=== PATIENT | male | born 1930 | race Caucasian/White ===

== ENCOUNTER 2018-04-10 10:53 | Outpatient (CLI) | payer MEDICARE, BC ==
--- NOTE | 2018-04-10 13:10 | RAD ---
TWO VIEWS CHEST: Comparison: 01-22-16 History: Cough for one month. FINDINGS: Two views of the chest shows a normal sized cardiomediastinal silhouette. The patient is status post sternotomy. There is no evidence of consolidation, mass or pleural effusions. Degenerative changes ar e seen in the spine. IMPRESSION: No evidence of acute cardiopulmonary disease. POS: [facility]
== END 2018-04-10 10:54 | disposition home or self-care (01) ==
LOC: BICRAD 10:53
PROVIDERS: ATTEND Otolaryngology Plastic Surgery within the Head & Neck
DX: R05 Cough (principal)
CPT/HCPCS: 71046

== ENCOUNTER 2019-08-23 07:34 | Day surgery (SDC) | payer MEDICARE, BC ==
[2019-08-22 10:49] VITALS: BMI 26.6
[~2019-08-23 07:34] MED LIST: Fentanyl 100 MCG/2 ML VIAL ONE; Fluorouracil 100 MG, Enoxaparin Sodium 25 MG, EPINEPHrine 0.3 MG in Ophthalmic Irrigati... IRR SCH
[2019-08-23] MEDS ORDERED: Phenylephrine 2.5% Ophth Soln 5 ML BOT ONE (07:48)
[2019-08-23] MEDS ORDERED: Cyclopentolate 1% Opth Drop 2 ML BOT ONE (07:48)
[2019-08-23] MEDS ORDERED: Bupivacaine PF 0.75% SDV 10 ML ONE (08:59)
[2019-08-23] MEDS ORDERED: CEFAZOLIN 1 GM VIAL ONE (08:59)
[2019-08-23] MEDS ORDERED: Enoxaparin Sodium 30 MG/0.3 ML SYRINGE ONE (08:59)
[2019-08-23] MEDS ORDERED: Indocyanine Green 25 MG/10 ML VIAL ONE (08:59)
[2019-08-23] MEDS ORDERED: Triamcinolone 40 MG/ML VIAL ONE (08:59)
[2019-08-23] MEDS ORDERED: Lidocaine 4% PF 5 ML AMP ONE (08:59)
[2019-08-23] MEDS ORDERED: Lidocaine 1% PF 5 ML VIAL ONE (08:59)
[2019-08-23] MEDS ORDERED: PROPOFOL 200 MG/20 ML VIAL ONE (08:59)
[2019-08-23] MEDS ORDERED: Tobramycin/Dexamethasone Ophth Oint 3.5 GM TUBE ONE (09:00)
[2019-08-23] MEDS ORDERED: PROPOFOL 20 ML ONE (09:58)
--- NOTE | 2019-08-24 10:29 | OP ---
DATE OF PROCEDURE: 08/23/2019 PREOPERATIVE DIAGNOSIS: Epiretinal membrane, right eye. POSTOPERATIVE DIAGNOSIS: Epiretinal membrane, right eye. PROCEDURE PERFORMED: Pars plana vitrectomy, epiretinal membrane peel, right eye. ANESTHESIA: Local with monitored anesthesia care. DESCRIPTION OF PROCEDURE: The patient was identified in the preoperative holding area. Appropriate informed consent for the planned surgical procedure on the right eye had been obtained. The patient was transported to the operative suite, where appropriate cardiopulmonary monitoring was established. Local anesthesia was obtained using retrobulbar and modified Van Lint and lid block using 50:50 mixture of 4% lidocaine and 0.75% bupivacaine. The patient was prepped and draped in usual sterile manner for ophthalmic surgery in the right eye. Lid speculum was placed in the right eye. A 27-gauge trocar was placed in the conjunctiva and sclera supratemporally . Light pipe and vitreous cutter were inserted into the eye. Core vitrectomy was performed. Indocyanine green dye was infused on the posterior pole x1 identifying the epiretinal membrane. This was elevated on the edges using a membrane scraper and peeled across the macula using end gripping forceps. Indirect ophthalmoscopy was used to exam the retina 360 degrees. No holes, breaks, or tears were identified. Trocars were removed. Eye was noted to retain pressure well. Retrobulbar Kenalog and sequential Ancef were placed antibiotic ointment was placed. The eye was patched and shielded. The patient was taken to postoperative recovery unit in good condition, having suffered no immediate perioperative complications. The patient was instructed to keep patch and shield on, avoid lifting or bending. Follow appointment with Dr. Veronica. Job ID: [id number]
== END 2019-08-23 10:45 | disposition home or self-care (01) ==
LOC: SDC 07:34
PROVIDERS: ATTEND Ophthalmology Retina Specialist
PROC: 08T43ZZ Resection of Right Vitreous, Percutaneous Approach (ICD-10-PCS; principal; 2019-08-23)
PROC: 08NE3ZZ Release Right Retina, Percutaneous Approach (ICD-10-PCS; 2019-08-23)
DX: H35.371 Puckering of macula, right eye (principal); Z79.82 Long term (current) use of aspirin; Z79.899 Other long term (current) drug therapy; Z88.1 Allergy status to other antibiotic agents; Z91.040 Latex allergy status; Z95.1 Presence of aortocoronary bypass graft
CPT/HCPCS: J0171; J0690; J1650; J2001; J2704; J3010; J3301; J3490; J9190

== ENCOUNTER 2019-08-27 09:25 | Inpatient (IN) | payer MEDICARE, BC ==
--- NOTE | 2019-08-27 10:26 | CT ---
CT head noncontrast HISTORY: Fall. Injury. FINDINGS: There is no evidence of acute intracranial hemorrhage or infarct. Mild diffuse cortical atr ophy. There is no mass effect or shift of midline structures. No skull fracture evident. IMPRESSION: No traumatic injury is demonstrated.
[2019-08-27] MEDS ORDERED: Acetaminophen 500 MG TAB ONE (10:38)
[2019-08-27 10:39] LABS: ALT (SGPT) 12 U/L (8-55); AST (SGOT) 17 U/L (5-34); Albumin 4.1 g/dL (3.4-4.8); Alkaline Phosphatase 71 U/L (40-110); Anion Gap 15 mmol/L (10-20); BUN (Urea Nitrogen) 23 mg/dL (8.4-25.7); Bilirubin, Total 0.9 mg/dL (0.2-1.2); Calc. Creatinine Clearance 0 mL/min (70-130); Calcium 8.9 mg/dL (7.8-10.44); Carbon Dioxide 18 mmol/L (23-31); Chloride 108 mmol/L (98-107); Estimated GFR-MDRD 55; Globulin 2.8 g/dL (2.4-3.5); Glucose 129 mg/dL (83-110); Potassium 4.1 mmol/L (3.5-5.1); Protein, Total 6.9 g/dL (5.8-8.1); Sodium 137 mmol/L (136-145)
--- NOTE | 2019-08-27 10:40 | CT ---
CT CERVICAL SPINE WITHOUT CONTRAST: Date: 08/27/2019 INDICATION: History of nausea, vomiting, fever, and neck pain. COMPARISON: None. FINDINGS: There is moderate multilevel disc degenerative disease with prominent anterior bridging osteophytes s panning C4 through C7. No acute fracture is evident. Craniocervical junction is normal appearing. Oss eous central canal appears relatively well preserved. Prevertebral soft tissues are normal appearing. Lung apices are clear. IMPRESSION: 1. No acute fracture or subluxation. 2. Moderate to severe multilevel cervical spondylosis. POS: [facility]
[2019-08-27 10:47] LABS: Band 20 % (5-11); Hemoglobin 15.9 g/dL (14.0-18.0); Lymphocytes 15 % (21-51); MDiff Complete? YES; Mean Corpuscular HGB CONC 33.4 g/dL (32.0-36.0); Mean Corpuscular Hemoglobin 30.3 pg (27.0-31.0); Mean Corpuscular Volume 90.6 fL (78.0-98.0); Mean Platelet Volume 8.9 fL (7.4-10.4); Monocytes 23 % (0-10); Neutrophil 41 % (42-75); Platelet Count 119 thou/uL (130-400); Platelet Morphology Comment Appears Decreased; RBC Distribution Width 12.9 % (11.5-14.5); RBC Morphology Normal; Reactive Lymphocytes 1 % (0-10); Red Blood Cell (RBC) Count 5.26 mill/uL (4.70-6.10); White Blood Cell (WBC) Count 3.8 thou/uL (4.8-10.8)
[2019-08-27] MEDS ORDERED: Iopamidol 370 76% 100 ML VIAL ONE (13:38)
--- NOTE | 2019-08-27 13:49 | RAD ---
XR Chest 1 View Portable HISTORY: Syncope COMPARISON: 05/03/2016 FINDINGS: The heart size is normal. The lungs are well expanded without focal areas of consolidation, pneumothorax or pleural effusions changes of median sternotomy are again seen.. IMPRESSION: No radiographic evidence of acute cardiopulmonary process.
--- NOTE | 2019-08-27 14:29 | CT ---
CT ABDOMEN AND PELVIS WITH IV CONTRAST: HISTORY: Diarrhea for 2 days. COMPARISON: None. FINDINGS: There is mild linear scarring versus atelectasis present at each lung base. Median sternotomy wires are partially imaged. The liver, spleen, pancreas, bilateral adrenal glands, kidneys, and partially distended urinary bladd er demonstrate a normal CT appearance. Loops of small bowel are normal in caliber. There are fluid-filled loops of small bowel. Colonic di verticulosis is present. Fluid is present within the sigmoid colon and rectum. There is suggested w all thickening involving the ascending colon with minimal pericolonic inflammatory changes identified . Findings could be related to colitis in this region, but given wall thickening, followup evaluatio n is recommended to ensure resolution. Vascular calcifications are seen in the abdominal aorta and involving the iliac arteries. No free fluid, fluid collection, or lymphadenopathy is seen in the abdomen or pelvis. Right total hip prosthesis is noted. Multilevel degenerative changes are seen in the lower thoracic as well as involving the lumbar spine, greatest involving the lower lumbar spine. Mild left hip oste oarthritis is present. Small fat-containing bilateral inguinal canals are present. IMPRESSION: 1. The ascending colon is incompletely distended which limits evaluation. There is suggested wall t hickening involving the colon in this region which could be related to incomplete distention, but the re are minimal adjacent pericolonic inflammatory changes also noted in this region, and findings are worrisome for colitis which may be either infectious or inflammatory in etiology. However, followup evaluation is recommended to ensure resolution of the suggested wall thickening involving the ascendi ng colon. 2. Small hiatal hernia. POS: [facility]
[2019-08-27] MEDS ORDERED: Senokot S 8.6-50 MG TAB PO PRN (15:51)
[2019-08-27] MEDS ORDERED: Calcium Carbonate 500 MG ChewTAB PO PRN (15:51)
[2019-08-27] MEDS ORDERED: Bisacodyl 10 MG SUPP PR PRN (15:51)
[2019-08-27] MEDS ORDERED: Ondansetron PF 4 MG/2 ML Vial IVP PRN (15:51)
[2019-08-27] MEDS ORDERED: Ondansetron ODT 4 MG TAB PO PRN (15:51)
[2019-08-27] MEDS ORDERED: Acetaminophen 325 MG TAB ONE (16:54)
[2019-08-27] MEDS: Acetaminophen 325 MG TAB PO PRN (17:03)
[2019-08-27] MEDS: Sodium Chloride 0.9% 1,000 ML IV SCH (17:03)
--- NOTE | 2019-08-27 18:27 | HP ---
PRIMARY CARE PHYSICIAN: Dr. Karan Paez. REASON FOR ADMISSION: Syncope, colitis. HISTORY OF PRESENT ILLNESS: An 89-year-old male, who has underlying history of dyslipidemia, anxiety, and depression, who lives at home with his family. Last night, the patient was having acute onset of diarrhea. The patient went to bathroom and he fell down. He had unwitnessed fall, but the patient did not have any injury. He was not complaining any pain anywhere in his body. The patient reports that he had loose stool and he became weak, and subsequently, he was not able to get out of bed and that is why family member brought him to emergency room for evaluation. In the emergency room, the patient had CT brain, which showed no acute intracranial process without any injury. Cervical spine showed [id number] cervical spondylosis without any fracture or dislocation. The patient had routine blood test done, which showed bandemia and that is why we did CT abdomen and pelvis, which showed suspected finding of ascending colon colitis and small hiatal hernia. The patient was also having diarrhea in the emergency room and bandemia and that is why stool for infection workup was initiated that was unremarkable including C diff was negative. The patient was overall very weak and that is why we decided to keep this patient in hospital for overnight observation. In the emergency room, the patient developed a fever with temperature maximum was 102.4. That is why we decided to do panculture in the emergency room. The patient was extremely weak and he was not able to move at all because of weakness and requiring lot of assistance and that is why we decided to change to inpatient status after observation status because he was meeting sepsis criteria and most likely source of infection is colon. Review of systems, all review of systems reviewed with him and negative except as mentioned in HPI. PAST MEDICAL HISTORY: Coronary artery disease with history of CABG, history of prostatitis, history of recurrent diverticulitis, dyslipidemia, peripheral neuropathy. PAST PSYCHIATRIC HISTORY: Anxiety and depression. ALLERGIES: EFFEXOR, WELLBUTRIN, PAXIL, PROZAC, ZYPREXA, NSAIDS. SOCIAL HISTORY: The patient is . No history of tobacco, alcohol, or illicit drug abuse. CURRENT HOME MEDICATIONS: 1. Xanax 0.5 mg p.o. at bedtime. 2. Aspirin 81 mg p.o. daily. 3. Crestor 5 mg p.o. at bedtime. 4. Zoloft 50 mg p.o. daily at bedtime. REVIEW OF SYSTEMS: CONSTITUTIONAL: Negative for weight loss or gain, ability to conduct usual activities. SKIN: Negative for rash, itching. EYES: Negative for double vision, pain. ENT/MOUTH: Negative for nose bleeding, neck stiffness, pain, tenderness. CARDIOVASCULAR: Negative for palpitations, dyspnea on exertion, orthopnea. RESPIRATORY: Negative for shortness of breath, wheezing, cough, hemoptysis, fever or night sweats. GASTROINTESTINAL: Negative for poor appetite, abdominal pain, heartburn, nausea, vomiting, constipation, or diarrhea. GENITOURINARY: Negative for urgency, frequency, dysuria, nocturia. MUSCULOSKELETAL: Negative for pain, swelling. NEUROLOGIC/PSYCHIATRIC: Negative for anxiety, depression. ALLERGY/IMMUNOLOGIC: Negative for skin rash, bleeding tendency. Please see my HPI for pertinent positives and negatives. All other review of systems reviewed and negative except as mentioned in HPI. EMERGENCY ROOM COURSE: The patient received Tylenol 1 g and IV fluid. PHYSICAL EXAMINATION: VITAL SIGNS: On arrival, blood pressure 131/77, pulse 89, respiratory rate 20, temperature 102.4, saturation 98% on room air. Weight 86.2 kg. GENERAL: The patient is currently very weak. No obvious acute distress. HEENT: Head; normocephalic and atraumatic. Eyes; pupils round and reactive to light. Extraocular muscle intact. The patient's right eye is red and injected secondary to recent surgery. Other eye is unaffected. NECK: Supple. No JVD. No meningeal signs of irritation. LUNGS: Clear to auscultation without any rhonchi or rales. CARDIAC: S1 and S2 regular. No murmur. No gallop. No rub. ABDOMEN: Soft. Bowel sounds are present. Nontender. Nondistended. No organomegaly. No mass. No peritoneal sign. BACK: Unremarkable. No CVA tenderness. EXTREMITIES: Upper extremities; passive movement of all joints is normal. Lower extremities; no edema. Good distal pulsation. SKIN: No skin rash. HEMATOLOGIC: No lymphadenopathy. NEUROLOGIC: Grossly nonfocal examination. He moves all 4 limbs, but the patient is very weak. He does not have any focal neurological deficit. IMAGING STUDIES: EKG showing nonspecific ST-T changes in anterior leads. Chest x-ray based on my review no acute cardiopulmonary process. CT abdomen and pelvis showing a suspected finding of ascending colon colitis as well as small hiatal hernia. Cervical spine CT scan showing diffuse cervical spondylosis with arthritis. CT brain negative for any acute intracranial process. LABORATORY DATA: CBC; WBC 3.8, hemoglobin 15.9, platelet 119 with bandemia. BMP; sodium 137, potassium 4.1, chloride 108, carbon dioxide 18, BUN 23, creatinine 1.24, glucose 129, and calcium 8.9. LFT; AST 17, ALT 12, alkaline phosphatase 71, albumin 4.1. Troponin 0.011. Glucose 121. ASSESSMENT AND PLAN: Impression: 1. Sepsis, most likely source is colitis, but underlying diverticulitis versus prostatitis cannot be entirely excluded, possible urinary tract infection. 2. Leukopenia, bandemia, and thrombocytopenia likely due to sepsis. 3. Mild metabolic acidosis. We will check lactic acid secondary to sepsis. 4. Colitis/diverticulitis based on CT finding. The patient will be kept on Cipro and Flagyl. 5. Volume depletion secondary to nausea, vomiting, diarrhea. The patient will be given IV fluid with NS at 75 mL/h. 6. Syncope, likely due to volume depletion secondary to diarrhea. The patient will be given IV fluid. We will check orthostatic vitals and we will also obtain echocardiography to rule out any cardiac etiology and monitor on telemetry floor. 7. Gastroenteritis/colitis. Infection workup is negative. We will continue with Cipro and Flagyl empirically. We will send urine culture and urinalysis to rule out associated prostatitis or urinary tract infection. 8. Physical deconditioning and generalized weakness. The patient will need PT/OT evaluation and [facility] consultation for possible need of placement. 9. Dyslipidemia. We will continue his home medication, Crestor 5 mg p.o. daily. 10. Anxiety and depression. We will continue Xanax 0.5 mg p.o. at bedtime, Zoloft 50 mg p.o. at bedtime. CODE STATUS: The patient is full code. The patient's is surrogate decision maker. DISPOSITION PLAN: Based on clinical course, we are expecting the patient's stay in hospital more than 2 midnights. Plan of care discussed with the patient and family member at bedside. Job ID: [id number]
[2019-08-27] MEDS: Famotidine 20 MG TAB PO SCH (21:39)
[2019-08-27] MEDS: ALPRAZolam 0.5 MG TAB PO SCH (21:39)
[2019-08-27] MEDS: Rosuvastatin 5 MG TAB PO SCH (21:39)
[2019-08-27] MEDS: Loperamide HCl 2 MG CAP PO PRN (21:39)
[2019-08-27] MEDS: metroNIDAZOLE 500 MG in Premix Bag 1 BAG IVPB SCH (21:40)
[2019-08-27 22:23] VITALS: BMI 31.1
[2019-08-28] MEDS: Acetaminophen 325 MG TAB PO PRN (00:21)
[2019-08-28] MEDS: metroNIDAZOLE 500 MG in Premix Bag 1 BAG IVPB SCH (05:28)
[2019-08-28] MEDS: Sodium Chloride 0.9% 1,000 ML IV SCH ×3 (05:30→18:37)
[2019-08-28 05:38] LABS: ALT (SGPT) 12 U/L (8-55); AST (SGOT) 31 U/L (5-34); Albumin 3.9 g/dL (3.4-4.8); Alkaline Phosphatase 57 U/L (40-110); Anion Gap 11 mmol/L (10-20); BUN (Urea Nitrogen) 22 mg/dL (8.4-25.7); Bilirubin, Total 0.8 mg/dL (0.2-1.2); Calc. Creatinine Clearance 48 mL/min (70-130); Calcium 8.5 mg/dL (7.8-10.44); Carbon Dioxide 21 mmol/L (23-31); Chloride 104 mmol/L (98-107); Estimated GFR-MDRD 52; Globulin 2.6 g/dL (2.4-3.5); Glucose 123 mg/dL (83-110); Protein, Total 6.5 g/dL (5.8-8.1); Sodium 133 mmol/L (136-145)
[2019-08-28 06:02] LABS: Hemoglobin 14.8 g/dL (14.0-18.0); Mean Corpuscular HGB CONC 33.3 g/dL (32.0-36.0); Mean Corpuscular Hemoglobin 29.6 pg (27.0-31.0); Mean Corpuscular Volume 88.9 fL (78.0-98.0); RBC Distribution Width 12.8 % (11.5-14.5); Red Blood Cell (RBC) Count 4.99 mill/uL (4.70-6.10)
[2019-08-28 06:21] LABS: Band 30 % (5-11); Lymphocytes 24 % (21-51); MDiff Complete? YES; Mean Platelet Volume 8.7 fL (7.4-10.4); Metamyelocyte 3 % (0-0); Monocytes 18 % (0-10); Neutrophil 25 % (42-75); Platelet Count 108 thou/uL (130-400); Platelet Morphology Comment Appears Decreased; White Blood Cell (WBC) Count 2.2 thou/uL (4.8-10.8)
[2019-08-28 06:24] LABS: Bacteria/HPF None Seen HPF (None Seen); Bilirubin Negative (Negative); Blood, Urine 1+ (Negative); Clarity Clear (Clear); Glucose, Urine (Dipstick) Normal (Negative); Leukocyte Negative Leu/uL (Negative); Nitrite Negative (Negative); Protein, Urine (Dipstick) 50 mg/dL (Neg-Trace); RBC/HPF 0-3 HPF (0-3); Squamous Epithelial 0-3 HPF (0-3); Urobilinogen Normal mg/dL (Less than 2)
[2019-08-28] MEDS: Aspirin 81 mg Enteric Coated Tablet PO SCH (08:25)
[2019-08-28] MEDS: Saccharomyces boulardii 250 MG CAP PO SCH (08:25)
[2019-08-28] MEDS: Famotidine 20 MG TAB PO SCH ×2 (08:25→20:24)
[2019-08-28] MEDS: Potassium Chloride 40 MEQ in Sodium Chloride 0.9% 250 ML 250 ML IVPB SCH ×2 (09:56→15:28)
[2019-08-28] MEDS ORDERED: metroNIDAZOLE 500 MG in Premix Bag 1 BAG IVPB SCH (10:00)
[2019-08-28] MEDS: Loperamide HCl 2 MG CAP PO PRN ×3 (12:33→20:23)
--- NOTE | 2019-08-28 20:03 | PDOC.HOSPP ---
- Subjective Encounter Date: 08/28/19 Encounter Time: 09:00 Subjective: overnight, continued to have loose bowel movements, nausea and vomiting. Otherwise no complaints. - Objective Vital Signs & Weight: Vital Signs (12 hours) Temp Pulse Pulse Pulse Resp BP BP 08/28/19 15:57 98.6 F 70 18 08/28/19 12:30 98.5 F 81 16 08/28/19 10:14 78 82 131/68 141/70 H 08/28/19 09:34 81 80 139/74 126/72 BP BP Pulse Ox 08/28/19 15:57 143/65 H 96 08/28/19 12:30 109/68 96 08/28/19 10:14 08/28/19 09:34 Weight Weight 187 lb I&O: 08/27/19 08/28/19 08/29/19 06:59 06:59 06:59 Intake Total 943 2020 Output Total 803 4 Balance 140 2015 Result Diagrams: 08/28/19 04:38 08/28/19 04:38 Hospitalist ROS - Review of Systems Constitutional: denies: fever, chills, sweats, weakness, malaise, other Respiratory: denies: cough, dry, shortness of breath, hemoptysis, SOB with excertion, pleuritic pain, sputum, wheezing, other Cardiovascular: denies: chest pain, palpitations, orthopnea, paroxysmal noc. dyspnea, edema, light headedness, other Gastrointestinal: reports: nausea, vomiting, diarrhea. denies: abdominal pain, constipation, melena, hematochezia Genitourinary: denies: dysuria, frequency, incontinence, hematuria, retention, other - Medication Medications: Active Medications Generic Name Dose Route Start Last Admin Trade Name Freq PRN Reason Stop Dose Admin Acetaminophen 650 mg 08/27/19 15:51 08/28/19 00:21 Tylenol PO 650 mg Q4H PRN Administration Headache/Fever/Mild Pain (1-3) Alprazolam 0.5 mg 08/27/19 21:00 08/27/19 21:39 Xanax PO 0.5 mg HS BILLIE Administration Aspirin 81 mg 08/28/19 09:00 08/28/19 08:25 Ecotrin PO 81 mg DAILY BILLIE Administration Famotidine 20 mg 08/27/19 21:00 08/28/19 08:25 Pepcid PO 20 mg BID BILLIE Administration Sodium Chloride 1,000 mls @ 120 mls/hr 08/28/19 09:30 08/28/19 18:37 Normal Saline 0.9% IV 1,000 mls .Q8H20M BILLIE Administration Loperamide HCl 2 mg 08/27/19 15:51 08/28/19 18:48 Imodium PO 2 mg PRN PRN Administration Diarrhea/Loose Stools Ondansetron HCl 4 mg 08/27/19 15:51 08/27/19 23:01 Zofran IVP 4 mg Q6H PRN Administration Nausea/Vomiting Rosuvastatin Calcium 5 mg 08/27/19 21:00 08/27/19 21:39 Crestor PO 5 mg HS BILLIE Administration Saccharomyces Boulardii 250 mg 08/28/19 09:00 08/28/19 08:25 Florastor PO 250 mg DAILY BILLIE Administration Sertraline HCl 50 mg 08/27/19 21:00 08/27/19 21:40 Zoloft PO 50 mg HS BILLIE Administration - Exam General Appearance: NAD, awake alert Heart: RRR, no murmur, no gallops, no rubs Respiratory: CTAB, no wheezes, no rales, no ronchi Gastrointestinal: soft, non-tender, non-distended, normal bowel sounds Extremities: no edema Psychiatric: normal affect, normal behavior, A&O x 3 Hosp A/P - Plan #viral gastroenteritis -qSOFA 0/3 -acute, n/v with diarrhea -bacterial and fungal stool studies negative -stopped antibiotics -will expect resolution within a day or two; otherwise will do additional studies including stool osmolality -supportive management #pancytopenia -unclear etiology, possible marrow suppression due to viral infection -will continue to follow, if persists will work up
[2019-08-28] MEDS: ALPRAZolam 0.5 MG TAB PO SCH (20:23)
[2019-08-28] MEDS: Rosuvastatin 5 MG TAB PO SCH (20:23)
[2019-08-29] MEDS: Sodium Chloride 0.9% 1,000 ML IV SCH (03:10)
[2019-08-29 04:48] LABS: Anion Gap 10 mmol/L (10-20); BUN (Urea Nitrogen) 17 mg/dL (8.4-25.7); Calc. Creatinine Clearance 57 mL/min (70-130); Carbon Dioxide 16 mmol/L (23-31); Chloride 110 mmol/L (98-107); Estimated GFR-MDRD 63; Glucose 100 mg/dL (83-110); Magnesium 1.7 mg/dL (1.6-2.6); Potassium 3.2 mmol/L (3.5-5.1); Sodium 133 mmol/L (136-145)
[2019-08-29 04:59] LABS: Band 14 % (5-11); Eosinophils 1 % (0-10); Hemoglobin 13.1 g/dL (14.0-18.0); Lymphocytes 38 % (21-51); MDiff Complete? YES; Mean Corpuscular HGB CONC 34.4 g/dL (32.0-36.0); Mean Corpuscular Hemoglobin 30.5 pg (27.0-31.0); Mean Corpuscular Volume 88.8 fL (78.0-98.0); Monocytes 27 % (0-10); Neutrophil 18 % (42-75); Platelet Count 79 thou/uL (130-400); Platelet Morphology Comment Appears Decreased; RBC Distribution Width 12.5 % (11.5-14.5); Reactive Lymphocytes 2 % (0-10); Red Blood Cell (RBC) Count 4.31 mill/uL (4.70-6.10); White Blood Cell (WBC) Count 2.1 thou/uL (4.8-10.8)
[2019-08-29] MEDS ORDERED: Ciprofloxacin 500 MG TAB PO SCH (07:00)
[2019-08-29] MEDS ORDERED: Magnesium 2 GM/50 ML 2 GM in Premix Bag 1 BAG IVPB SCH (07:45)
[2019-08-29] MEDS: NS 0.9% w/ 40 MEQ KCL 1,000 ML IV SCH ×2 (08:51→19:56)
[2019-08-29] MEDS: Saccharomyces boulardii 250 MG CAP PO SCH (08:52)
[2019-08-29] MEDS: Aspirin 81 mg Enteric Coated Tablet PO SCH (08:52)
[2019-08-29] MEDS: Famotidine 20 MG TAB PO SCH ×2 (09:05→21:19)
[2019-08-29] MEDS: Acetaminophen 325 MG TAB PO PRN (12:42)
[2019-08-29] MEDS: Ciprofloxacin 500 MG TAB PO SCH (20:00)
[2019-08-29] MEDS: Rosuvastatin 5 MG TAB PO SCH (21:19)
[2019-08-29] MEDS: ALPRAZolam 0.5 MG TAB PO SCH (21:19)
[2019-08-30] MEDS: NS 0.9% w/ 40 MEQ KCL 1,000 ML IV SCH ×2 (05:23→15:43)
[2019-08-30] MEDS: Ciprofloxacin 500 MG TAB PO SCH ×2 (05:24→20:23)
[2019-08-30] MEDS: Saccharomyces boulardii 250 MG CAP PO SCH (08:27)
[2019-08-30] MEDS: Famotidine 20 MG TAB PO SCH ×2 (08:27→20:23)
[2019-08-30] MEDS: Aspirin 81 mg Enteric Coated Tablet PO SCH (08:27)
[2019-08-30 10:17] LABS: Anion Gap 10 mmol/L (10-20); BUN (Urea Nitrogen) 14 mg/dL (8.4-25.7); Calc. Creatinine Clearance 61 mL/min (70-130); Calcium 7.9 mg/dL (7.8-10.44); Carbon Dioxide 21 mmol/L (23-31); Chloride 111 mmol/L (98-107); Estimated GFR-MDRD 68; Glucose 128 mg/dL (83-110); Magnesium 1.8 mg/dL (1.6-2.6); Potassium 3.7 mmol/L (3.5-5.1); Sodium 138 mmol/L (136-145)
[2019-08-30] MEDS: Rosuvastatin 5 MG TAB PO SCH (20:23)
[2019-08-30] MEDS: ALPRAZolam 0.5 MG TAB PO SCH (20:23)
--- NOTE | 2019-08-30 20:41 | PDOC.HOSPP ---
- Subjective Encounter Date: 08/29/19 Encounter Time: 11:00 Subjective: no overnight events. Conitnues to feel well. had 4 loose bowel movements overnight. - Objective Vital Signs & Weight: Vital Signs (12 hours) Temp Pulse Pulse Resp BP BP BP 08/30/19 20:00 98.4 F 64 20 162/72 H 08/30/19 16:25 61 138/63 143/78 H 08/30/19 16:00 98.6 F 60 18 08/30/19 11:43 97.4 F L 64 18 BP BP BP Pulse Ox 08/30/19 20:00 154/63 H 160/67 H 160/77 H 94 L 08/30/19 16:25 08/30/19 16:00 150/88 H 97 08/30/19 11:43 140/64 95 Weight Weight 187 lb I&O: 08/29/19 08/30/19 08/31/19 06:59 06:59 06:59 Intake Total 3700 1840 3200 Output Total 807 1125 1650 Balance 2893 715 1550 Result Diagrams: 08/29/19 04:12 08/30/19 09:39 Hospitalist ROS - Review of Systems Constitutional: denies: fever, chills, sweats, weakness, malaise, other Respiratory: denies: cough, dry, shortness of breath, hemoptysis, SOB with excertion, pleuritic pain, sputum, wheezing, other Cardiovascular: denies: chest pain, palpitations, orthopnea, paroxysmal noc. dyspnea, edema, light headedness, other Gastrointestinal: denies: nausea, vomiting, abdominal pain, diarrhea, constipation, melena, hematochezia, other Genitourinary: denies: dysuria, frequency, incontinence, hematuria, retention, other Neurological: denies: weakness, numbness, incoordination, change in speech, confusion, seizures, other - Medication Medications: Active Medications Generic Name Dose Route Start Last Admin Trade Name Freq PRN Reason Stop Dose Admin Acetaminophen 650 mg 08/27/19 15:51 08/29/19 12:42 Tylenol PO 650 mg Q4H PRN Administration Headache/Fever/Mild Pain (1-3) Alprazolam 0.5 mg 08/27/19 21:00 08/30/19 20:23 Xanax PO 0.5 mg HS BILLIE Administration Aspirin 81 mg 08/28/19 09:00 08/30/19 08:27 Ecotrin PO 81 mg DAILY BILLIE Administration Ciprofloxacin 500 mg 08/29/19 20:00 08/30/19 20:23 Cipro PO 500 mg 0600,2000 BILLIE Administration Famotidine 20 mg 08/27/19 21:00 08/30/19 20:23 Pepcid PO 20 mg BID BILLIE Administration Potassium Chloride/Sodium Chloride 1,000 mls @ 100 mls/hr 08/29/19 07:30 15:43 Ns 0.9% W/ 40 Meq Kcl IV 1,000 mls .Q10H BILLIE Administration Ondansetron HCl 4 mg 08/27/19 15:51 08/27/19 23:01 Zofran IVP 4 mg Q6H PRN Administration Nausea/Vomiting Rosuvastatin Calcium 5 mg 08/27/19 21:00 08/30/19 20:23 Crestor PO 5 mg HS BILLIE Administration Saccharomyces Boulardii 250 mg 08/28/19 09:00 08/30/19 08:27 Florastor PO 250 mg DAILY BILLIE Administration Sertraline HCl 50 mg 08/27/19 21:00 08/30/19 20:23 Zoloft PO 50 mg HS BILLIE Administration Sodium Chloride 10 ml 08/29/19 09:00 08/30/19 20:23 Flush - Normal Saline IVF 10 ml Q12HR BILLIE Administration - Exam General Appearance: negative: NAD, awake alert, ill appearing Heart: RRR, no murmur, no gallops, no rubs, normal peripheral pulses Respiratory: CTAB, no wheezes, no rales, no ronchi, normal chest expansion, no tachypnea, normal percussion Gastrointestinal: soft, non-tender, non-distended, normal bowel sounds, no palpable masses, no hepatomegaly, no splenomegaly, no bruit Extremities: no cyanosis, no clubbing, no edema Psychiatric: normal affect, normal behavior, A&O x 3 Hosp A/P - Plan #salmonella colitis -qSOFA 0/3 -acute, n/v with diarrhea -stool culture growing salmonella -will expect resolution of diarrhea within a day or two considering mild symptoms -supportive management #pancytopenia -unclear etiology, possible marrow suppression due to viral infection -will continue to follow, if persists will work up
--- NOTE | 2019-08-30 20:45 | PDOC.HOSPP ---
- Subjective Encounter Date: 08/29/19 Encounter Time: 09:00 Subjective: no overnight events. This morning, continues to feel well. has no complaints and denies chills, night sweats. Can't recall how many bowel movements. - Objective Vital Signs & Weight: Vital Signs (12 hours) Temp Pulse Pulse Resp BP BP BP 08/30/19 20:00 98.4 F 64 20 162/72 H 08/30/19 16:25 61 138/63 143/78 H 08/30/19 16:00 98.6 F 60 18 08/30/19 11:43 97.4 F L 64 18 BP BP BP Pulse Ox 08/30/19 20:00 154/63 H 160/67 H 160/77 H 94 L 08/30/19 16:25 08/30/19 16:00 150/88 H 97 08/30/19 11:43 140/64 95 Weight Weight 187 lb I&O: 08/29/19 08/30/19 08/31/19 06:59 06:59 06:59 Intake Total 3700 1840 3200 Output Total 807 1125 1650 Balance 2893 715 1550 Result Diagrams: 08/29/19 04:12 08/30/19 09:39 Hospitalist ROS - Review of Systems Constitutional: denies: fever, chills, sweats, weakness, malaise, other Respiratory: denies: cough, dry, shortness of breath, hemoptysis, SOB with excertion, pleuritic pain, sputum, wheezing, other Cardiovascular: denies: chest pain, palpitations, orthopnea, paroxysmal noc. dyspnea, edema, light headedness, other Gastrointestinal: denies: nausea, vomiting, abdominal pain, diarrhea, constipation, melena, hematochezia, other Genitourinary: denies: dysuria, frequency, incontinence, hematuria, retention, other Neurological: denies: weakness, numbness, incoordination, change in speech, confusion, seizures, other - Medication Medications: Active Medications Generic Name Dose Route Start Last Admin Trade Name Freq PRN Reason Stop Dose Admin Acetaminophen 650 mg 08/27/19 15:51 08/29/19 12:42 Tylenol PO 650 mg Q4H PRN Administration Headache/Fever/Mild Pain (1-3) Alprazolam 0.5 mg 08/27/19 21:00 08/30/19 20:23 Xanax PO 0.5 mg HS BILLIE Administration Aspirin 81 mg 08/28/19 09:00 08/30/19 08:27 Ecotrin PO 81 mg DAILY BILLIE Administration Ciprofloxacin 500 mg 08/29/19 20:00 08/30/19 20:23 Cipro PO 500 mg 0600,2000 BILLIE Administration Famotidine 20 mg 08/27/19 21:00 08/30/19 20:23 Pepcid PO 20 mg BID BILLIE Administration Potassium Chloride/Sodium Chloride 1,000 mls @ 100 mls/hr 08/29/19 07:30 15:43 Ns 0.9% W/ 40 Meq Kcl IV 1,000 mls .Q10H BILLIE Administration Ondansetron HCl 4 mg 08/27/19 15:51 08/27/19 23:01 Zofran IVP 4 mg Q6H PRN Administration Nausea/Vomiting Rosuvastatin Calcium 5 mg 08/27/19 21:00 08/30/19 20:23 Crestor PO 5 mg HS BILLIE Administration Saccharomyces Boulardii 250 mg 08/28/19 09:00 08/30/19 08:27 Florastor PO 250 mg DAILY BILLIE Administration Sertraline HCl 50 mg 08/27/19 21:00 08/30/19 20:23 Zoloft PO 50 mg HS BILLIE Administration Sodium Chloride 10 ml 08/29/19 09:00 08/30/19 20:23 Flush - Normal Saline IVF 10 ml Q12HR BILLIE Administration - Exam General Appearance: negative: NAD, awake alert, ill appearing Heart: RRR, no murmur, no gallops, no rubs, normal peripheral pulses Respiratory: CTAB, no wheezes, no rales, no ronchi, normal chest expansion, no tachypnea, normal percussion Gastrointestinal: soft, non-tender, non-distended, normal bowel sounds, no palpable masses, no hepatomegaly, no splenomegaly, no bruit Extremities: no edema Psychiatric: normal affect, normal behavior, A&O x 3 Hosp A/P - Plan #nontyphidal salmonella colitis -qSOFA 0/3 -acute, n/v with diarrhea -symptoms are improving -ciprofloxacin oral started -supportive management #pancytopenia -unclear etiology, possible marrow suppression due to infection -will continue to follow, if persists will work up
[2019-08-31 04:19] LABS: Anion Gap 8 mmol/L (10-20); BUN (Urea Nitrogen) 10 mg/dL (8.4-25.7); Calc. Creatinine Clearance 61 mL/min (70-130); Carbon Dioxide 25 mmol/L (23-31); Chloride 110 mmol/L (98-107); Estimated GFR-MDRD 69; Glucose 103 mg/dL (83-110); Magnesium 1.7 mg/dL (1.6-2.6); Potassium 4.2 mmol/L (3.5-5.1); Sodium 139 mmol/L (136-145)
[2019-08-31 04:23] LABS: Eosinophils 4 % (0-10); Hemoglobin 12.7 g/dL (14.0-18.0); Hypochromia SLIGHT = 6-15 cells (100X) (0-5/hpf); Lymphocytes 44 % (21-51); MDiff Complete? YES; Mean Corpuscular HGB CONC 33.3 g/dL (32.0-36.0); Mean Corpuscular Hemoglobin 29.7 pg (27.0-31.0); Mean Corpuscular Volume 89.5 fL (78.0-98.0); Mean Platelet Volume 8.9 fL (7.4-10.4); Monocytes 20 % (0-10); Neutrophil 30 % (42-75); Platelet Count 73 thou/uL (130-400); Platelet Morphology Comment Appears Adequate; RBC Distribution Width 12.7 % (11.5-14.5); Reactive Lymphocytes 2 % (0-10); Red Blood Cell (RBC) Count 4.27 mill/uL (4.70-6.10); White Blood Cell (WBC) Count 2.4 thou/uL (4.8-10.8)
[2019-08-31] MEDS: Ciprofloxacin 500 MG TAB PO SCH (06:20)
[2019-08-31] MEDS ORDERED: Amlodipine 5 MG TAB PO SCH (09:30)
[2019-08-31] MEDS: Saccharomyces boulardii 250 MG CAP PO SCH (09:55)
[2019-08-31] MEDS: Aspirin 81 mg Enteric Coated Tablet PO SCH (09:55)
[2019-08-31] MEDS: Famotidine 20 MG TAB PO SCH (09:55)
[2019-08-31 13:53] VITALS: BP 142/72; TEMP 98.2
[2019-08-31] MEDS: Acetaminophen 325 MG TAB PO PRN (14:09)
--- NOTE | 2019-09-01 10:22 | EKG ---
Test Reason : Blood Pressure : / mmHG Vent. Rate : 097 BPM Atrial Rate : 097 BPM P-R Int : 160 ms QRS Dur : 092 ms QT Int : 340 ms P-R-T Axes : 052 030 095 degrees QTc Int : 431 ms Normal sinus rhythm Abnormal ECG Confirmed by MARNIE AGUERO MD ([id number]), editor dictionary BEV JARVIS ([id number]) on 09/01/2019 10:22:04 AM Referred By: Confirmed By:MARNIE AGUERO MD
--- NOTE | 2019-09-01 17:51 | DIS ---
DATE OF ADMISSION: 08/27/2019 DATE OF DISCHARGE: 08/31/2019 HOSPITAL COURSE: Mr. Mccray is an 89-year-old male, presented with diarrhea. He was diagnosed with non-typhoidal Salmonella gastroenteritis. 1. Non-typhoidal Salmonella colitis. Acute nausea and vomiting with diarrhea. Stool culture grew Salmonella. The patient's symptoms improved significantly after starting ciprofloxacin. The patient was hemodynamically stable with resolution of diarrhea on the day of discharge. Continue ciprofloxacin for a total duration of 14 days considering the patient's significant comorbidities as well as neutropenia. 2. Neutropenia, most likely due to the patient's infection. Neutrophil count started trending up after starting up oral ciprofloxacin. Rehab staff was informed regarding the patient's neutropenia to carry out proper neutropenic isolation. PCP should continue to follow white blood cell counts. On the day of discharge, the patient was hemodynamically stable and had no complaints. His vitals were unremarkable. PHYSICAL EXAMINATION: GENERAL: No apparent distress. Alert and oriented x3. HEART: Regular rate and rhythm. No murmurs, no gallops, no rubs. Normal peripheral pulses. RESPIRATORY: Clear to auscultation bilaterally. No wheezes. No rales. No rhonchi. Normal chest expansion. No tachypnea. GASTROINTESTINAL: Soft, nontender, nondistended. Normal bowel sounds. No palpable masses. EXTREMITIES: No edema. PSYCHIATRIC: Normal affect. Normal behavior. Alert and oriented x3. Job ID: [id number] [facility]
--- NOTE | 2019-09-03 12:04 | PQF ---
ADELA GUTIERREZ ADI [id number] CLINICAL DOCUMENTATION CLARIFICATION FORM: POST DISCHARGE Addendum to original discharge summary date: ____ Late entry note date: __ DATE: 09/03/2019 ATTN: RAUL CARDENAS Please exercise your independent, professional judgment in responding to the clarification form. Clinical indicators are provided on the bottom of this form for your review Please check appropriate box(s) to clarify if the following diagnosis has been ruled in or ruled out: SEPSIS [ x ] Ruled in diagnosis [ ] Continue to treat [ x ] Resolved [ ] Ruled out diagnosis [ ] Cannot rule out diagnosis [ ] Other diagnosis [ ] Unable to determine For continuity of documentation, please document condition throughout progress notes and discharge summary. Thank You. CLINICAL INDICATORS - - fever with temperature maximum was 102.4 - H and P on 08/27/2019Vandana Salim Noorjibhai - he was meeting sepsis criteria - H and P on 08/27/2019Vandana Salim Noorjibhai -Leukopenia , bandemia , and thrombocytopenia likely due to sepsis - H and P on 08/27/2019Vandana Salim Noorjibhai -Metabolic acidosis - H and P on 08/27/2019Vandana Salim Noorjibhai RISK FACTORS - non typhoidal Salmonella gastroenteritis - Discharge summary on 08/31/2019, Raul Cardenas TREATMENTS -improved significantly alex starting ciprofloxacin - Discharge summary on , Raul Cardenas MTDD
== END 2019-08-31 15:15 | DRG 872 ==
LOC: ERS 09:25 → ERHOLD 14:12 → OBSVTOIN 14:12 → 2NO 17:55 → ONC 08-29 15:06
PROVIDERS: ADMIT Internal Medicine; ATTEND Internal Medicine
DX: A41.9 Sepsis, unspecified organism (principal); A02.0 Salmonella enteritis; E87.2 Acidosis; D70.9 Neutropenia, unspecified; I25.10 Atherosclerotic heart disease of native coronary artery without angina pectoris; E78.5 Hyperlipidemia, unspecified; E78.00 Pure hypercholesterolemia, unspecified; F41.9 Anxiety disorder, unspecified; F32.9 Major depressive disorder, single episode, unspecified; M47.812 Spondylosis without myelopathy or radiculopathy, cervical region; K44.9 Diaphragmatic hernia without obstruction or gangrene; E86.9 Volume depletion, unspecified
CPT/HCPCS: 36415; 36416; 70450; 71045; 72125; 74177; 80048; 80053; 81003; 81015; 82274; 83605; 83630; 83735; 84484; 85025; 87040; 87045; 87046; 87086; 87186; 87324; 87328; 87329; 87427; 87449; 93005; 93306; 96360; J0171; J0690; J0744; J1650; J2001; J2405; J2704; J3010; J3301; J3475; J3480; J3490; J7050; J9190; Q9967